=== PATIENT | male | born 1960 | race Caucasian/White ===

== ENCOUNTER → 2022-01-02 | Outpatient (CLI) | payer MEDICARE ==
[2022-01-02 10:52] LABS: INR 1.67; PROTHROMBIN TIME 20.1 SECONDS (12.7-14.5)
== END ==
LOC: M LAB 10:14
DX: Z79.01 Long term (current) use of anticoagulants (principal)

== ENCOUNTER → 2022-01-23 | Outpatient (CLI) | payer MEDICARE ==
[2022-01-23 16:23] LABS: INR 2.67; PROTHROMBIN TIME 28.8 SECONDS (12.7-14.5)
== END ==
LOC: M WUC 13:04
PROVIDERS: ATTEND Internal Medicine
DX: Z79.01 Long term (current) use of anticoagulants (principal); I48.20 Chronic atrial fibrillation, unspecified

== ENCOUNTER → 2022-02-20 | Outpatient (CLI) | payer MEDICARE ==
[2022-02-20 20:08] LABS: INR 1.86; PROTHROMBIN TIME 21.8 SECONDS (12.7-14.5)
== END ==
LOC: M WUC 15:01
PROVIDERS: ATTEND Internal Medicine
DX: Z79.01 Long term (current) use of anticoagulants (principal); I48.20 Chronic atrial fibrillation, unspecified

== ENCOUNTER → 2022-03-13 | Outpatient (REF) | payer MEDICARE ==
[2022-03-13 13:28] LABS: INR 1.93; PROTHROMBIN TIME 22.5 SECONDS (12.7-14.5)
== END ==
LOC: M WUC 12:16
PROVIDERS: ATTEND Internal Medicine
DX: Z79.01 Long term (current) use of anticoagulants (principal)

== ENCOUNTER → 2022-04-02 | Outpatient (REF) | payer MEDICARE ==
[2022-04-02 16:20] LABS: INR 2.71; PROTHROMBIN TIME 29.1 SECONDS (12.7-14.5)
== END ==
LOC: M LABWUC 15:50
PROVIDERS: ATTEND Internal Medicine
DX: Z79.01 Long term (current) use of anticoagulants (principal); I48.20 Chronic atrial fibrillation, unspecified

== ENCOUNTER → 2022-04-23 | Outpatient (REF) | payer MEDICARE ==
[2022-04-23 17:23] LABS: INR 2.16; PROTHROMBIN TIME 24.5 SECONDS (12.7-14.5)
== END ==
LOC: M LABWUC 16:34
PROVIDERS: ATTEND Internal Medicine
DX: Z79.01 Long term (current) use of anticoagulants (principal); I48.20 Chronic atrial fibrillation, unspecified

== ENCOUNTER → 2022-05-21 | Outpatient (REF) | payer MEDICARE ==
[2022-05-21 17:55] LABS: INR 3.22; PROTHROMBIN TIME 33.2 SECONDS (12.7-14.5)
== END ==
LOC: M LABWUC 17:08
PROVIDERS: ATTEND Internal Medicine
DX: Z79.01 Long term (current) use of anticoagulants (principal)

== ENCOUNTER → 2022-07-15 | Outpatient (CLI) | payer MEDICARE ==
[2022-07-15 18:28] LABS: INR 2.97; PROTHROMBIN TIME 31.4 SECONDS (12.5-14.5)
== END ==
LOC: M WUC 14:35
PROVIDERS: ATTEND Internal Medicine
DX: I48.20 Chronic atrial fibrillation, unspecified (principal); Z79.01 Long term (current) use of anticoagulants

== ENCOUNTER → 2022-08-14 | Outpatient (REF) | payer MEDICARE ==
[2022-08-14 17:10] LABS: INR 2.74; PROTHROMBIN TIME 29.4 SECONDS (12.5-14.5)
== END ==
LOC: M WUC 14:09
PROVIDERS: ATTEND Internal Medicine
DX: Z79.01 Long term (current) use of anticoagulants (principal); I48.20 Chronic atrial fibrillation, unspecified

== ENCOUNTER → 2022-09-02 | Outpatient (CLI) | payer MEDICARE | LOC: M WUC 13:31 | PROVIDERS: ATTEND Internal Medicine | DX: Z53.9 Procedure and treatment not carried out, unspecified reason (principal) ==

== ENCOUNTER → 2022-09-25 | Outpatient (REF) | payer MEDICARE ==
[2022-09-25 20:13] LABS: INR 4.16; PROTHROMBIN TIME 40.8 SECONDS (12.5-14.5)
== END ==
LOC: M LABWUC 19:11
PROVIDERS: ATTEND Internal Medicine
DX: Z79.01 Long term (current) use of anticoagulants (principal); I48.20 Chronic atrial fibrillation, unspecified

== ENCOUNTER → 2022-09-30 | Outpatient (CLI) | payer MEDICARE ==
[2022-09-30 13:56] LABS: INR 2.62; PROTHROMBIN TIME 28.4 SECONDS (12.5-14.5)
== END ==
LOC: M WUC 10:43
PROVIDERS: ATTEND Internal Medicine
DX: Z79.01 Long term (current) use of anticoagulants (principal)

== ENCOUNTER → 2022-11-15 | Outpatient (CLI) | payer MEDICARE ==
[2022-11-15 16:47] LABS: INR 2.07; PROTHROMBIN TIME 23.7 SECONDS (12.5-14.5)
== END ==
LOC: M WUC 13:44
PROVIDERS: ATTEND Internal Medicine
DX: Z79.01 Long term (current) use of anticoagulants (principal); I48.20 Chronic atrial fibrillation, unspecified

== ENCOUNTER → 2022-12-17 | Outpatient (CLI) | payer OTHER ==
[2022-12-17 13:21] LABS: INR 1.72; PROTHROMBIN TIME 20.5 SECONDS (12.5-14.5)
== END ==
LOC: M WUC 10:51
PROVIDERS: ATTEND Internal Medicine
DX: Z79.01 Long term (current) use of anticoagulants (principal); I48.20 Chronic atrial fibrillation, unspecified

== ENCOUNTER → 2023-01-06 | Outpatient (CLI) | payer OTHER ==
[2023-01-06 13:04] LABS: INR 1.74; PROTHROMBIN TIME 20.7 SECONDS (12.5-14.5)
== END ==
LOC: M WUC 10:57
PROVIDERS: ATTEND Internal Medicine
DX: I48.20 Chronic atrial fibrillation, unspecified (principal)

== ENCOUNTER → 2023-01-28 | Outpatient (CLI) | payer OTHER ==
[2023-01-28 16:27] LABS: PROTHROMBIN TIME > 150.0 SECONDS (12.5-14.5)
[2023-01-29 10:24] LABS: INR > 5.00
== END ==
LOC: M WUC 13:50
PROVIDERS: ATTEND Internal Medicine
DX: Z79.01 Long term (current) use of anticoagulants (principal)

== ENCOUNTER 2023-01-30 19:27 | Emergency (ER) | payer OTHER ==
[2023-01-30] MEDS ORDERED: AMIO200T49 PO (19:40)
[2023-01-30] MEDS ORDERED: SPIR-10 PO (19:42)
[2023-01-30] MEDS ORDERED: METO1TAB33 PO (19:42)
[2023-01-30] MEDS ORDERED: FURO40TA2 PO (19:43)
[2023-01-30] MEDS ORDERED: PANT40TA29 PO (19:43)
[2023-01-30] MEDS ORDERED: LISI5TAB11 PO (19:43)
[2023-01-30] MEDS ORDERED: ALBU6.7H6 INH (19:44)
[2023-01-30] MEDS ORDERED: SYMB80INH INH (19:44)
[2023-01-30] MEDS ORDERED: MAGN400T2 PO (19:44)
[2023-01-30] MEDS ORDERED: WARF4TAB51 PO (19:45)
[2023-01-30 20:29] LABS: BASO % 0.5 % (0.0-1.0); EOS # 0.3 10^3/uL (0.0-0.5); EOS % 3.4 % (0.0-3.0); HEMATOCRIT 26.2 % (42.0-52.0); LYMPH # 1.2 10^3/uL (1.5-5.0); MEAN CORPUSCULAR HEMOGLOBIN 29.5 pg (27.0-33.0); MEAN CORPUSCULAR HGB CONC 34.4 g/dl (32.0-36.5); MEAN CORPUSCULAR VOLUME 85.9 fl (80.0-96.0); MONO # 0.7 10^3/uL (0.0-0.8); MONO % 9.1 % (2.0-8.0); NEUTROPHILS # 5.1 10^3/uL (1.5-8.5); NEUTROPHILS % 69.5 % (36.0-66.0); PLATELET COUNT, AUTOMATED 111 10^3/uL (150-450); RED BLOOD COUNT 3.05 10^6/uL (4.30-6.10); WHITE BLOOD COUNT 7.3 10^3/uL (4.0-10.0)
[2023-01-30 21:04] LABS: RSV AMPLIFICATION NEGATIVE (NEGATIVE)
[2023-01-30 21:07] LABS: PROTHROMBIN TIME 89.9 SECONDS (12.5-14.5)
[2023-01-30 21:21] LABS: ALBUMIN 3.1 G/DL (3.2-5.2); ALKALINE PHOSPHATASE 159 U/L (46-116); ALT/SGPT 2955 U/L (7.0-40); AST/SGOT 1097 U/L (<34); BILIRUBIN,TOTAL 4.8 MG/DL (0.3-1.2); BLOOD UREA NITROGEN 28 MG/DL (9-23); CALCIUM LEVEL 8.7 MG/DL (8.3-10.6); CARBON DIOXIDE LEVEL 26 MMOL/L (20-31); CHLORIDE LEVEL 100 MMOL/L (98-107); CK-MB VALUE MASS 1.2 NG/ML (<3.6); CPK CREATINE PHOSPHOKINASE 451 U/L (46-171); CREATININE FOR GFR 1.17 MG/DL (0.70-1.30); GLOMERULAR FILTRATION RATE > 60.0 (>49); GLUCOSE, FASTING 137 MG/DL (74-106); MB/CK RELATIVE INDEX 0.26 (< OR =4); POTASSIUM SERUM 3.9 MMOL/L (3.5-5.1); SODIUM LEVEL 135 MMOL/L (136-145); TOTAL PROTEIN 5.5 G/DL (5.7-8.2)
[2023-01-30] MEDS ORDERED: NS 500 ML IV ONE (21:25)
[2023-01-30] MEDS ORDERED: MORPHINE 2 MG/ML 1ML VIAL IV ONE (21:30)
[2023-01-30 21:33] LABS: INR 11.42
[2023-01-30] MEDS ORDERED: ISOVUE-370 76% 100ML VIAL As Ordered ONE (21:45)
[2023-01-30] MEDS ORDERED: PHYTONADIONE INJection 10 MG in NS 50 ML IV ONE (23:20)
[2023-01-30] MEDS ORDERED: MORPHINE 4 MG/ML 1ML VIAL IV ONE (23:50)
[2023-01-31 00:11] VITALS: BP 111/65
[2023-01-31 01:07] LABS: ACETAMINOPHEN LEVEL 5.1 UG/ML (10.0-20.0); HEPATITIS B CORE ANTIBODY IGM NEGATIVE (NEGATIVE); HEPATITIS B SURFACE ANTIGEN NEGATIVE (NEGATIVE)
[2023-01-31 01:09] LABS: HEPATITIS C VIRUS ABY INDEX > 11.0 INDEX (<0.8)
== END 2023-01-31 01:29 | disposition short-term general hospital (02) ==
LOC: M ED 19:27
DX: R79.1 Abnormal coagulation profile (principal); K72.90 Hepatic failure, unspecified without coma; D64.9 Anemia, unspecified; H44.819 Hemophthalmos, unspecified eye; I10 Essential (primary) hypertension; I42.9 Cardiomyopathy, unspecified; Z79.01 Long term (current) use of anticoagulants; F17.200 Nicotine dependence, unspecified, uncomplicated; Z79.899 Other long term (current) drug therapy; Z79.51 Long term (current) use of inhaled steroids
CPT/HCPCS: 36415; 70450; 71045; 71275; 72125; 73502; 73552; 73564; 74177; 80048; 80076; 80143; 82550; 82553; 84484; 85025; 85610; 86705; 86709; 86803; 87340; 87522; 87631; 93041; 93971; 94760; 96365; 96375; 96376; 99285; J3430; Q9967

== ENCOUNTER → 2023-01-30 | Outpatient (CLI) | payer OTHER ==
[~2023-01-30] MED LIST: ALBU6.7H6 INH; AMIO200T49 PO; FURO40TA2 PO; LISI5TAB11 PO; MAGN400T2 PO; METO1TAB33 PO; PANT40TA29 PO; SPIR-10 PO; SYMB80INH INH; WARF4TAB51 PO
[2023-01-30 17:58] LABS: INR 12.17
[2023-01-30 18:19] LABS: PROTHROMBIN TIME 94.4 SECONDS (12.5-14.5)
== END ==
LOC: M WUC 14:01
PROVIDERS: ATTEND Internal Medicine
DX: Z79.01 Long term (current) use of anticoagulants (principal)

== ENCOUNTER → 2023-02-05 | Outpatient (CLI) | payer OTHER ==
[2023-02-05 14:58] LABS: INR 1.11; PROTHROMBIN TIME 14.5 SECONDS (12.5-14.5)
== END ==
LOC: M WUC 13:37
PROVIDERS: ATTEND Internal Medicine
DX: Z79.01 Long term (current) use of anticoagulants (principal); I48.20 Chronic atrial fibrillation, unspecified

== ENCOUNTER → 2023-02-07 | Outpatient (CLI) | payer OTHER ==
[2023-02-07 17:09] LABS: HEMOGLOBIN 9.5 g/dl (13.5-17.5); MEAN CORPUSCULAR HEMOGLOBIN 30.5 pg (27.0-33.0); MEAN CORPUSCULAR HGB CONC 31.7 g/dl (32.0-36.5); MEAN CORPUSCULAR VOLUME 96.5 fl (80.0-96.0); PLATELET COUNT, AUTOMATED 233 10^3/uL (150-450); RED BLOOD COUNT 3.11 10^6/uL (4.30-6.10); WHITE BLOOD COUNT 10.9 10^3/uL (4.0-10.0)
[2023-02-07 17:13] LABS: IRON (FE) 86 UG/DL (65-175)
[2023-02-07 17:14] LABS: ALBUMIN 3.2 G/DL (3.2-5.2); ALKALINE PHOSPHATASE 105 U/L (46-116); ALT/SGPT 477 U/L (7.0-40); AST/SGOT 54 U/L (<34); BLOOD UREA NITROGEN 18 MG/DL (9-23); CALCIUM LEVEL 8.2 MG/DL (8.3-10.6); CARBON DIOXIDE LEVEL 25 MMOL/L (20-31); CHLORIDE LEVEL 104 MMOL/L (98-107); CREATININE FOR GFR 0.94 MG/DL (0.70-1.30); GLOMERULAR FILTRATION RATE > 60.0 (>49); GLUCOSE, FASTING 75 MG/DL (74-106); MAGNESIUM LEVEL 1.6 MG/DL (1.8-2.4); POTASSIUM SERUM 4.2 MMOL/L (3.5-5.1); SODIUM LEVEL 136 MMOL/L (136-145); TOTAL PROTEIN 6.1 G/DL (5.7-8.2)
[2023-02-07 17:15] LABS: FERRITIN 171.2 NG/ML (10.5-307.3)
== END ==
LOC: M WUC 11:40
DX: F10.10 Alcohol abuse, uncomplicated (principal); D50.9 Iron deficiency anemia, unspecified

== ENCOUNTER → 2023-03-05 | Outpatient (CLI) | payer OTHER ==
[2023-03-05 17:41] LABS: INR 2.41; PROTHROMBIN TIME 26.6 SECONDS (12.5-14.5)
== END ==
LOC: M WUC 13:53
PROVIDERS: ATTEND Internal Medicine
DX: Z79.01 Long term (current) use of anticoagulants (principal); I48.20 Chronic atrial fibrillation, unspecified

== ENCOUNTER → 2023-04-18 | Outpatient (CLI) | payer OTHER ==
[2023-04-18 13:09] LABS: INR 0.93; PROTHROMBIN TIME 12.7 SECONDS (12.5-14.5)
== END ==
LOC: M WUC 09:23
PROVIDERS: ATTEND Internal Medicine
DX: Z79.01 Long term (current) use of anticoagulants (principal)

== ENCOUNTER → 2023-05-05 | Outpatient (CLI) | payer OTHER ==
[2023-05-05 17:34] LABS: INR 2.67; PROTHROMBIN TIME 27.8 SECONDS (12.5-14.5)
== END ==
LOC: M WUC 13:28
PROVIDERS: ATTEND Internal Medicine
DX: Z79.01 Long term (current) use of anticoagulants (principal); I48.20 Chronic atrial fibrillation, unspecified

== ENCOUNTER → 2023-05-29 | Outpatient (REF) | payer OTHER ==
[2023-05-29 17:53] LABS: INR 2.62; PROTHROMBIN TIME 27.4 SECONDS (12.5-14.5)
== END ==
LOC: M WUC 15:57
PROVIDERS: ATTEND Internal Medicine
DX: Z79.01 Long term (current) use of anticoagulants (principal); I48.20 Chronic atrial fibrillation, unspecified

== ENCOUNTER → 2023-06-10 | Outpatient (CLI) | payer OTHER ==
[2023-06-10 12:40] LABS: INR 2.56; PROTHROMBIN TIME 26.9 SECONDS (12.5-14.5)
== END ==
LOC: M WUC 09:59
PROVIDERS: ATTEND Internal Medicine
DX: I48.20 Chronic atrial fibrillation, unspecified (principal)

== ENCOUNTER → 2023-06-25 | Outpatient (REF) | payer OTHER ==
[2023-06-25 12:19] LABS: INR 2.57
== END ==
LOC: M WUC 11:27
PROVIDERS: ATTEND Internal Medicine
DX: I48.20 Chronic atrial fibrillation, unspecified (principal)

== ENCOUNTER → 2023-07-14 | Outpatient (REF) | payer OTHER ==
[2023-07-14 17:06] LABS: INR 1.87
== END ==
LOC: M WUC 16:11
PROVIDERS: ATTEND Internal Medicine
DX: I48.20 Chronic atrial fibrillation, unspecified (principal)

== ENCOUNTER → 2023-07-29 | Outpatient (REF) | payer OTHER ==
[2023-07-29 18:09] LABS: INR 3.33; PROTHROMBIN TIME 32.5 SECONDS (12.5-14.5)
== END ==
LOC: M LABWUC 16:29
PROVIDERS: ATTEND Internal Medicine
DX: I48.20 Chronic atrial fibrillation, unspecified (principal)

== ENCOUNTER → 2023-08-12 | Outpatient (REF) | payer OTHER ==
[2023-08-12 16:13] LABS: INR 2.98; PROTHROMBIN TIME 29.9 SECONDS (12.5-14.5)
== END ==
LOC: M WUC 15:25
PROVIDERS: ATTEND Internal Medicine
DX: I48.20 Chronic atrial fibrillation, unspecified (principal)

== ENCOUNTER → 2023-08-22 | Outpatient (REF) | payer OTHER ==
[2023-08-22 17:48] LABS: INR 2.26; PROTHROMBIN TIME 24.1 SECONDS (12.5-14.5)
== END ==
LOC: M WUC 16:09
PROVIDERS: ATTEND Internal Medicine
DX: I48.20 Chronic atrial fibrillation, unspecified (principal)

== ENCOUNTER → 2023-09-10 | Outpatient (REF) | payer OTHER ==
[2023-09-10 17:18] LABS: INR 3.31; PROTHROMBIN TIME 32.4 SECONDS (12.5-14.5)
== END ==
LOC: M LABWUC 16:10
PROVIDERS: ATTEND Internal Medicine
DX: I48.20 Chronic atrial fibrillation, unspecified (principal)

== ENCOUNTER → 2023-10-01 | Outpatient (REF) | payer OTHER ==
[2023-10-01 17:06] LABS: INR 2.47; PROTHROMBIN TIME 25.9 SECONDS (12.5-14.5)
== END ==
LOC: M LABWUC 16:01
PROVIDERS: ATTEND Internal Medicine
DX: I48.20 Chronic atrial fibrillation, unspecified (principal)

== ENCOUNTER → 2023-10-28 | Outpatient (REF) | payer OTHER ==
[2023-10-28 13:00] LABS: INR 2.71; PROTHROMBIN TIME 27.7 SECONDS (12.5-14.5)
== END ==
LOC: M LABWUC 12:11
PROVIDERS: ATTEND Internal Medicine
DX: I48.20 Chronic atrial fibrillation, unspecified (principal)

== ENCOUNTER → 2023-11-13 | Outpatient (REF) | payer OTHER ==
[2023-11-13 13:44] LABS: INR 1.69; PROTHROMBIN TIME 19.3 SECONDS (12.5-14.5)
== END ==
LOC: M LABWUC 12:07
PROVIDERS: ATTEND Internal Medicine
DX: I48.20 Chronic atrial fibrillation, unspecified (principal)

== ENCOUNTER → 2023-12-05 | Outpatient (REF) | payer OTHER ==
[2023-12-05 19:44] LABS: INR 1.82; PROTHROMBIN TIME 20.5 SECONDS (12.5-14.5)
== END ==
LOC: M LAB REF 19:25
PROVIDERS: ATTEND Internal Medicine
DX: I48.20 Chronic atrial fibrillation, unspecified (principal)

== ENCOUNTER → 2024-01-01 | Outpatient (REF) | payer OTHER ==
[2024-01-01 17:14] LABS: ALT/SGPT 21 U/L (7.0-40); AST/SGOT 29 U/L (<34); BLOOD UREA NITROGEN 17 MG/DL (9-23); CALCIUM LEVEL 8.7 MG/DL (8.3-10.6); CARBON DIOXIDE LEVEL 32 MMOL/L (20-31); CHLORIDE LEVEL 101 MMOL/L (98-107); CREATININE FOR GFR 1.02 MG/DL (0.70-1.30); GLOMERULAR FILTRATION RATE > 60.0 (>49); GLUCOSE, FASTING 107 MG/DL (74-106); POTASSIUM SERUM 3.6 MMOL/L (3.5-5.1); SODIUM LEVEL 140 MMOL/L (136-145)
[2024-01-01 17:16] LABS: THYROID STIMULATING HORMONE 2.424 uIU/ML (0.55-4.78)
== END ==
LOC: M LABWUC 16:13
PROVIDERS: ATTEND Nurse Practitioner Family
DX: I48.20 Chronic atrial fibrillation, unspecified (principal); I50.22 Chronic systolic (congestive) heart failure

== ENCOUNTER → 2024-01-01 | Outpatient (REF) | payer OTHER ==
[2024-01-01 17:17] LABS: INR 3.49; PROTHROMBIN TIME 33.7 SECONDS (12.5-14.5)
== END ==
LOC: M LABWUC 16:12
PROVIDERS: ATTEND Internal Medicine
DX: I48.20 Chronic atrial fibrillation, unspecified (principal)

== ENCOUNTER 2024-01-09 21:19 | Emergency (ER) | payer OTHER ==
[~2024-01-09] VITALS: Ht 195.6 cm; Wt 113.6 kg
[2024-01-09 23:03] LABS: BASO # 0.1 10^3/uL (0.0-0.2); BASO % 0.6 % (0.0-1.0); EOS # 0.1 10^3/uL (0.0-0.5); HEMATOCRIT 40.4 % (42.0-52.0); HEMOGLOBIN 12.9 g/dl (13.5-17.5); LYMPH # 1.1 10^3/uL (1.5-5.0); LYMPH % 13.5 % (24.0-44.0); MEAN CORPUSCULAR HGB CONC 31.9 g/dl (32.0-36.5); MEAN CORPUSCULAR VOLUME 84.7 fl (80.0-96.0); MONO # 0.8 10^3/uL (0.0-0.8); NEUTROPHILS # 6.2 10^3/uL (1.5-8.5); NEUTROPHILS % 74.4 % (36.0-66.0); PLATELET COUNT, AUTOMATED 166 10^3/uL (150-450); RED BLOOD COUNT 4.77 10^6/uL (4.30-6.10); WHITE BLOOD COUNT 8.3 10^3/uL (4.0-10.0)
[2024-01-09 23:15] LABS: INR 4.01; PROTHROMBIN TIME 37.5 SECONDS (12.5-14.5)
[2024-01-09] MEDS: ONDANSETRON 4MG ORAL DISINTEGRATING TAB PO ONE (23:21)
[2024-01-09 23:31] LABS: BLOOD UREA NITROGEN 19 MG/DL (9-23); CALCIUM LEVEL 8.9 MG/DL (8.3-10.6); CARBON DIOXIDE LEVEL 32 MMOL/L (20-31); CHLORIDE LEVEL 96 MMOL/L (98-107); GLOMERULAR FILTRATION RATE > 60.0 (>49); GLUCOSE, FASTING 102 MG/DL (74-106); POTASSIUM SERUM 3.9 MMOL/L (3.5-5.1); SODIUM LEVEL 136 MMOL/L (136-145)
[2024-01-10] MEDS ORDERED: VENTAER INH (00:53)
[2024-01-10] MEDS ORDERED: TOPR100T PO (00:53)
[2024-01-10] MEDS ORDERED: WARF-18 PO ×2 (00:53)
[2024-01-10] MEDS ORDERED: THERTAB52 PO (00:53)
[2024-01-10] MEDS ORDERED: ACET325C5 PO (00:53)
[2024-01-10] MEDS ORDERED: HOME MED LIST COMPLETE! XX SCH (00:55)
[2024-01-10] MEDS: PHYTONADIONE 5 MG TAB PO ONE (01:29)
[2024-01-10] MEDS: OXAZEPAM 15MG CAP PO ONE (02:15)
[2024-01-10] MEDS: TRANEXAMIC ACID INJection 1,000 MG in NS 100 ML IV ONE (02:24)
[2024-01-10 02:36] LABS: ALBUMIN 3.3 G/DL (3.2-5.2); BILIRUBIN,DIRECT 0.2 MG/DL (<0.4); BILIRUBIN,TOTAL 0.9 MG/DL (0.3-1.2); TOTAL PROTEIN 6.3 G/DL (5.7-8.2)
[2024-01-10 03:26] VITALS: BP 148/68; TEMP 98; O2SAT 98
== END 2024-01-10 04:41 | disposition home or self-care (01) ==
LOC: M ED 21:19
DX: R79.1 Abnormal coagulation profile (principal); R58 Hemorrhage, not elsewhere classified; I48.91 Unspecified atrial fibrillation; I10 Essential (primary) hypertension; Z79.1 Long term (current) use of non-steroidal anti-inflammatories (NSAID); Z79.51 Long term (current) use of inhaled steroids; Z79.810 Long term (current) use of selective estrogen receptor modulators (SERMs); Z79.899 Other long term (current) drug therapy

== ENCOUNTER → 2024-01-12 | Outpatient (CLI) | payer OTHER ==
[~2024-01-12] MED LIST changes: +ACET325C5 PO; +THERTAB52 PO; +TOPR100T PO; +VENTAER INH; +WARF-18 PO
[2024-01-12 10:44] LABS: INR 1.58; PARTIAL THROMBOPLASTIN TIME 40.1 SECONDS (24.8-34.2); PROTHROMBIN TIME 18.3 SECONDS (12.5-14.5)
== END ==
LOC: M WUC 08:59
PROVIDERS: ATTEND Emergency Medicine
DX: Z79.01 Long term (current) use of anticoagulants (principal)

== ENCOUNTER → 2024-01-29 | Outpatient (REF) | payer OTHER ==
[2024-01-29 16:53] LABS: INR 3.4; PROTHROMBIN TIME 33.1 SECONDS (12.5-14.5)
== END ==
LOC: M LABDRAWP 16:07
PROVIDERS: ATTEND Internal Medicine
DX: I48.20 Chronic atrial fibrillation, unspecified (principal)

== ENCOUNTER 2024-02-08 20:45 | Emergency (ER) | payer OTHER ==
[~2024-02-08] VITALS: Ht 195.6 cm; Wt 118.0 kg
[2024-02-08 21:48] LABS: HEMATOCRIT 38.1 % (42.0-52.0); HEMOGLOBIN 12.2 g/dl (13.5-17.5); MEAN CORPUSCULAR VOLUME 87.6 fl (80.0-96.0); PLATELET COUNT, AUTOMATED 151 10^3/uL (150-450); RED BLOOD COUNT 4.35 10^6/uL (4.30-6.10); WHITE BLOOD COUNT 6.3 10^3/uL (4.0-10.0)
[2024-02-08 22:00] LABS: INR 3.34; PROTHROMBIN TIME 32.6 SECONDS (12.5-14.5)
[2024-02-08 22:20] LABS: ATYPICAL LYMPH 2 % (0-5); BASOPHILS 2 % (0-1); EOSINOPHILS 4 % (0-3); LYMPHOCYTES 38 % (16-44); MONOCYTES 9 % (0-5); NEUTROPHILS 45 % (28-66); PLATELET ESTIMATE NORMAL (NORMAL)
[2024-02-08 22:25] LABS: CK-MB VALUE MASS < 1.0 NG/ML (<3.6); LIPASE 60 U/L (12-53)
[2024-02-08 22:27] LABS: ALBUMIN 3.6 G/DL (3.2-5.2); ALKALINE PHOSPHATASE 50 U/L (46-116); ALT/SGPT 21 U/L (7.0-40); AST/SGOT 38 U/L (<34); BILIRUBIN,DIRECT < 0.1 MG/DL (<0.4); BILIRUBIN,TOTAL 0.2 MG/DL (0.3-1.2); BLOOD UREA NITROGEN 16 MG/DL (9-23); CALCIUM LEVEL 8.4 MG/DL (8.3-10.6); CARBON DIOXIDE LEVEL 27 MMOL/L (20-31); CHLORIDE LEVEL 104 MMOL/L (98-107); CREATININE FOR GFR 0.98 MG/DL (0.70-1.30); GLOMERULAR FILTRATION RATE > 60.0 (>49); GLUCOSE, FASTING 100 MG/DL (74-106); POTASSIUM SERUM 4.5 MMOL/L (3.5-5.1); SODIUM LEVEL 139 MMOL/L (136-145); TOTAL PROTEIN 6.7 G/DL (5.7-8.2)
[2024-02-08 22:33] LABS: CPK CREATINE PHOSPHOKINASE 75 U/L (46-171); MB/CK RELATIVE INDEX 1.33 (< OR =4)
[2024-02-08 23:40] VITALS: TEMP 97
[2024-02-09 00:18] LABS: CK-MB VALUE MASS < 1.0 NG/ML (<3.6)
[2024-02-09 00:20] LABS: CPK CREATINE PHOSPHOKINASE 76 U/L (46-171); MB/CK RELATIVE INDEX 1.31 (< OR =4)
[2024-02-09] MEDS: methylPREDNISolone 125MG 2ML VIAL IV ONE (00:39)
[2024-02-09] MEDS: IPRATROPIUM 0.5MG/ALBUTEROL 2.5MG INH SOL UD 3ML (DUONEB) NEB ONE (00:44)
[2024-02-09 02:00] VITALS: BP 123/89; O2SAT 93
== END 2024-02-09 02:22 | disposition home or self-care (01) ==
LOC: M ED 20:45
DX: R07.9 Chest pain, unspecified (principal); J06.9 Acute upper respiratory infection, unspecified; R06.00 Dyspnea, unspecified; K42.9 Umbilical hernia without obstruction or gangrene; R94.31 Abnormal electrocardiogram [ECG] [EKG]; I44.7 Left bundle-branch block, unspecified; I48.91 Unspecified atrial fibrillation; I50.22 Chronic systolic (congestive) heart failure; K21.9 Gastro-esophageal reflux disease without esophagitis; F17.210 Nicotine dependence, cigarettes, uncomplicated; F10.10 Alcohol abuse, uncomplicated; Z79.1 Long term (current) use of non-steroidal anti-inflammatories (NSAID); Z79.51 Long term (current) use of inhaled steroids; Z79.810 Long term (current) use of selective estrogen receptor modulators (SERMs); Z79.899 Other long term (current) drug therapy
CPT/HCPCS: 71045; 80053; 82248; 82550; 82553; 83605; 83690; 83880; 84484; 85025; 85610; 87486; 87581; 87633; 87798; 93005; 93041; 94640; 94760; 96374; 99285; J2919

== ENCOUNTER → 2024-02-23 | Outpatient (REF) | payer OTHER ==
[2024-02-23 21:41] LABS: INR 2.62
== END ==
LOC: M LAB REF 21:07
PROVIDERS: ATTEND Internal Medicine
DX: I48.20 Chronic atrial fibrillation, unspecified (principal)

== ENCOUNTER → 2024-03-23 | Outpatient (REF) | payer OTHER ==
[2024-03-23 17:37] LABS: INR 3.22; PROTHROMBIN TIME 31.7 SECONDS (12.5-14.5)
== END ==
LOC: M LABWUC 16:05
PROVIDERS: ATTEND Internal Medicine
DX: I48.20 Chronic atrial fibrillation, unspecified (principal)

== ENCOUNTER → 2024-04-07 | Outpatient (REF) | payer OTHER ==
[2024-04-07 16:42] LABS: INR 3.19; PROTHROMBIN TIME 31.5 SECONDS (12.5-14.5)
== END ==
LOC: M LABWUC 16:12
PROVIDERS: ATTEND Internal Medicine
DX: I48.20 Chronic atrial fibrillation, unspecified (principal)

== ENCOUNTER → 2024-04-20 | Outpatient (CLI) | payer OTHER ==
[2024-04-20 12:56] LABS: INR 2.22; PROTHROMBIN TIME 23.9 SECONDS (12.5-14.5)
== END ==
LOC: M WUC 10:24
PROVIDERS: ATTEND Internal Medicine
DX: I48.20 Chronic atrial fibrillation, unspecified (principal)

== ENCOUNTER → 2024-05-18 | Outpatient (REF) | payer OTHER ==
[2024-05-18 16:34] LABS: INR 1.65; PROTHROMBIN TIME 18.9 SECONDS (12.5-14.5)
== END ==
LOC: M LABWUC 16:10
PROVIDERS: ATTEND Internal Medicine
DX: I48.20 Chronic atrial fibrillation, unspecified (principal)

== ENCOUNTER → 2024-06-21 | Outpatient (REF) | payer OTHER ==
[2024-06-21 17:20] LABS: INR 1.49; PROTHROMBIN TIME 17.5 SECONDS (12.5-14.5)
== END ==
LOC: M LABWUC 16:15
PROVIDERS: ATTEND Internal Medicine
DX: I48.20 Chronic atrial fibrillation, unspecified (principal)

== ENCOUNTER → 2024-07-09 | Outpatient (REF) | payer OTHER ==
[2024-07-09 16:40] LABS: INR 2.82; PROTHROMBIN TIME 28.6 SECONDS (12.5-14.5)
== END ==
LOC: M LABWUC 16:09
PROVIDERS: ATTEND Internal Medicine
DX: I48.20 Chronic atrial fibrillation, unspecified (principal)

== ENCOUNTER → 2024-07-30 | Outpatient (REF) | payer OTHER ==
[2024-07-30 16:25] LABS: INR 3.02; PROTHROMBIN TIME 31.2 SECONDS (12.5-14.5)
== END ==
LOC: M LABDRWAD 16:06
PROVIDERS: ATTEND Internal Medicine
DX: I48.20 Chronic atrial fibrillation, unspecified (principal)

== ENCOUNTER → 2024-08-17 | Outpatient (REF) | payer OTHER ==
[2024-08-17 16:39] LABS: INR 2.11; PROTHROMBIN TIME 23.7 SECONDS (12.5-14.5)
== END ==
LOC: M LAB REF 16:10 → M LABWUC 16:10
PROVIDERS: ATTEND Internal Medicine
DX: I48.20 Chronic atrial fibrillation, unspecified (principal)

== ENCOUNTER → 2024-09-16 | Outpatient (CLI) | payer OTHER ==
[2024-09-16 16:11] LABS: INR 1.99; PROTHROMBIN TIME 22.7 SECONDS (12.5-14.5)
== END ==
LOC: M WUC 11:26
PROVIDERS: ATTEND Internal Medicine
DX: Z79.01 Long term (current) use of anticoagulants (principal)

== ENCOUNTER → 2024-10-16 | Outpatient (CLI) | payer OTHER | LOC: M SLEEP 20:00 | PROVIDERS: ATTEND Internal Medicine Critical Care Medicine | DX: G47.33 Obstructive sleep apnea (adult) (pediatric) (principal) ==

== ENCOUNTER → 2024-10-20 | Outpatient (REF) | payer OTHER ==
[2024-10-20 17:05] LABS: INR 1.88; PROTHROMBIN TIME 21.8 SECONDS (12.5-14.5)
== END ==
LOC: M LABWUC 16:15
PROVIDERS: ATTEND Internal Medicine
DX: Z79.01 Long term (current) use of anticoagulants (principal)

== ENCOUNTER → 2024-10-29 | Outpatient (REF) | payer MEDICARE ==
[2024-10-29 17:19] LABS: INR 1.96; PROTHROMBIN TIME 22.5 SECONDS (12.5-14.5)
== END ==
LOC: M LABWUC 16:05
PROVIDERS: ATTEND Internal Medicine
DX: Z79.01 Long term (current) use of anticoagulants (principal)

== ENCOUNTER → 2024-11-17 | Outpatient (REF) | payer MEDICARE ==
[2024-11-17 13:01] LABS: INR 3.54; PROTHROMBIN TIME 35.1 SECONDS (12.5-14.5)
[2024-11-17 13:18] LABS: ALBUMIN 3.9 G/DL (3.2-5.2); ALKALINE PHOSPHATASE 60 U/L (40-129); ALT/SGPT 21 U/L (7.0-40); AST/SGOT 29 U/L (<34); BILIRUBIN,TOTAL 0.7 MG/DL (0.3-1.2); BLOOD UREA NITROGEN 14 MG/DL (9-23); CALCIUM LEVEL 9.3 MG/DL (8.3-10.6); CARBON DIOXIDE LEVEL 28 MMOL/L (20-31); CHLORIDE LEVEL 97 MMOL/L (98-107); CHOLESTEROL LEVEL 232 MG/DL (<200); CHOLESTEROL RISK RATIO 4.02 (<5); CREATININE FOR GFR 1.12 MG/DL (0.70-1.30); GLOMERULAR FILTRATION RATE > 60.0 (>49); GLUCOSE, FASTING 141 MG/DL (74-106); HDL CHOLESTEROL 57.6 MG/DL (>40); LDL CHOLESTEROL 137.2 MG/DL (<100); MAGNESIUM LEVEL 1.6 MG/DL (1.8-2.4); NON-HDL-C 174.4 MG/DL; POTASSIUM SERUM 3.9 MMOL/L (3.5-5.1); SODIUM LEVEL 137 MMOL/L (136-145); TOTAL PROTEIN 7.4 G/DL (5.7-8.2); TRIGLYCERIDES LEVEL 186 MG/DL (<150)
[2024-11-17 13:22] LABS: THYROID STIMULATING HORMONE 3.958 uIU/ML (0.55-4.78)
[2024-11-17 13:32] LABS: HEMOGLOBIN A1c 5.4 % (4.0-6.0)
== END ==
LOC: M LABWUC 12:30
PROVIDERS: ATTEND Internal Medicine
DX: I50.22 Chronic systolic (congestive) heart failure (principal); N18.2 Chronic kidney disease, stage 2 (mild); I42.0 Dilated cardiomyopathy; I48.20 Chronic atrial fibrillation, unspecified; I47.20 Ventricular tachycardia, unspecified; Z51.81 Encounter for therapeutic drug level monitoring; Z79.899 Other long term (current) drug therapy; E26.1 Secondary hyperaldosteronism; F10.20 Alcohol dependence, uncomplicated; Z79.01 Long term (current) use of anticoagulants

== ENCOUNTER → 2024-11-23 | Outpatient (CLI) | payer MEDICARE ==
[2024-11-23 17:34] LABS: BASO # 0.1 10^3/uL (0.0-0.2); BASO % 1.2 % (0.0-1.0); EOS # 0.2 10^3/uL (0.0-0.5); EOS % 2.3 % (0.0-3.0); HEMATOCRIT 40.7 % (42.0-52.0); HEMOGLOBIN 12.7 g/dl (13.5-17.5); LYMPH # 1.9 10^3/uL (1.5-5.0); LYMPH % 22.5 % (24.0-44.0); MEAN CORPUSCULAR HEMOGLOBIN 27.8 pg (27.0-33.0); MEAN CORPUSCULAR HGB CONC 31.2 g/dl (32.0-36.5); MEAN CORPUSCULAR VOLUME 89.1 fl (80.0-96.0); MONO # 0.8 10^3/uL (0.0-0.8); MONO % 9.1 % (2.0-8.0); NEUTROPHILS # 5.5 10^3/uL (1.5-8.5); NEUTROPHILS % 64.5 % (36.0-66.0); PLATELET COUNT, AUTOMATED 266 10^3/uL (150-450); RED BLOOD COUNT 4.57 10^6/uL (4.30-6.10); WHITE BLOOD COUNT 8.6 10^3/uL (4.0-10.0)
[2024-11-23 17:48] LABS: INR 3.85; PROTHROMBIN TIME 37.5 SECONDS (12.5-14.5)
[2024-11-23 17:50] LABS: ALBUMIN 3.8 G/DL (3.2-5.2); BLOOD UREA NITROGEN 22 MG/DL (9-23); CARBON DIOXIDE LEVEL 34 MMOL/L (20-31); CHLORIDE LEVEL 100 MMOL/L (98-107); GLOMERULAR FILTRATION RATE > 60.0 (>49); GLUCOSE, FASTING 96 MG/DL (74-106); MAGNESIUM LEVEL 1.7 MG/DL (1.8-2.4); POTASSIUM SERUM 4.2 MMOL/L (3.5-5.1); SODIUM LEVEL 139 MMOL/L (136-145)
[2024-11-23 17:53] LABS: THYROID STIMULATING HORMONE 1.421 uIU/ML (0.55-4.78)
== END ==
LOC: M WUC 11:25
PROVIDERS: ATTEND Internal Medicine Cardiovascular Disease
DX: I48.0 Paroxysmal atrial fibrillation (principal); K21.9 Gastro-esophageal reflux disease without esophagitis; I50.22 Chronic systolic (congestive) heart failure; I47.20 Ventricular tachycardia, unspecified

== ENCOUNTER → 2024-11-29 | Outpatient (REF) | payer MEDICARE | LOC: M LAB REF 03:14 | PROVIDERS: ATTEND Internal Medicine Cardiovascular Disease | DX: I48.0 Paroxysmal atrial fibrillation (principal) ==

== ENCOUNTER → 2024-12-20 | Outpatient (REF) | payer MEDICARE ==
[2024-12-20 17:35] LABS: INR 2.27; PROTHROMBIN TIME 25.1 SECONDS (12.5-14.5)
== END ==
LOC: M LABWUC 17:01
PROVIDERS: ATTEND Internal Medicine Cardiovascular Disease
DX: I48.0 Paroxysmal atrial fibrillation (principal)

== ENCOUNTER → 2024-12-27 | Outpatient (CLI) | payer MEDICARE | LOC: M PLAIMG 12:40 | PROVIDERS: ATTEND Internal Medicine Cardiovascular Disease | DX: R06.02 Shortness of breath (principal); J44.9 Chronic obstructive pulmonary disease, unspecified; F17.218 Nicotine dependence, cigarettes, with other nicotine-induced disorders ==

== ENCOUNTER → 2025-01-04 | Outpatient (REF) | payer MEDICARE, OTHER ==
[2025-01-04 17:30] LABS: INR 2.01; PROTHROMBIN TIME 22.9 SECONDS (12.5-14.5)
== END ==
LOC: M LAB REF 17:12 → M LABWUC 17:12
PROVIDERS: ATTEND Internal Medicine Cardiovascular Disease
DX: I48.0 Paroxysmal atrial fibrillation (principal)

== ENCOUNTER → 2025-01-13 | Outpatient (CLI) | payer MEDICARE | LOC: M SLEEP 20:00 | PROVIDERS: ATTEND Internal Medicine Critical Care Medicine | DX: G47.33 Obstructive sleep apnea (adult) (pediatric) (principal) ==

== ENCOUNTER → 2025-01-14 | Outpatient (REF) | payer MEDICARE ==
[2025-01-14 18:23] LABS: CALCIUM LEVEL 9.2 MG/DL (8.3-10.6); CREATININE FOR GFR 1.03 MG/DL (0.70-1.30); GLOMERULAR FILTRATION RATE 82.1 (>49); POTASSIUM SERUM 4.1 MMOL/L (3.5-5.1)
[2025-01-14 18:41] LABS: BASO # 0.1 10^3/uL (0.0-0.2); BASO % 0.9 % (0.0-1.0); EOS # 0.1 10^3/uL (0.0-0.5); HEMATOCRIT 41.3 % (42.0-52.0); HEMOGLOBIN 12.8 g/dl (13.5-17.5); LYMPH # 1.1 10^3/uL (1.5-5.0); LYMPH % 16.5 % (24.0-44.0); MEAN CORPUSCULAR HEMOGLOBIN 27.8 pg (27.0-33.0); MEAN CORPUSCULAR VOLUME 89.6 fl (80.0-96.0); MONO # 0.9 10^3/uL (0.0-0.8); MONO % 13.3 % (2.0-8.0); NEUTROPHILS # 4.7 10^3/uL (1.5-8.5); PLATELET COUNT, AUTOMATED 177 10^3/uL (150-450); RED BLOOD COUNT 4.61 10^6/uL (4.30-6.10); WHITE BLOOD COUNT 6.9 10^3/uL (4.0-10.0)
== END ==
LOC: M LABWUC 16:45 → M LAB REF 16:45
PROVIDERS: ATTEND Physician Assistant
DX: I50.22 Chronic systolic (congestive) heart failure (principal)

== ENCOUNTER → 2025-02-09 | Outpatient (REF) | payer MEDICARE ==
[2025-02-09 17:08] LABS: INR 2.17; PROTHROMBIN TIME 24.2 SECONDS (12.5-14.5)
== END ==
LOC: M LABWUC 16:51
PROVIDERS: ATTEND Physician Assistant
DX: I48.0 Paroxysmal atrial fibrillation (principal)

== ENCOUNTER → 2025-03-28 | Outpatient (REF) | payer MEDICARE ==
[~2025-03-28] MED LIST changes: -AMIO200T49 PO; +AMIO200T54 PO; +BUDE10.7 IH; +DIGO0.253 PO; +FAMO40TA3 PO; +LOSA50TA28 PO
[2025-03-28 17:52] LABS: INR 3.05
== END ==
LOC: M LABWUC 17:05
PROVIDERS: ATTEND Physician Assistant
DX: I48.91 Unspecified atrial fibrillation (principal); Z79.01 Long term (current) use of anticoagulants

== ENCOUNTER → 2025-04-18 | Outpatient (CLI) | payer MEDICARE ==
[2025-04-18 12:05] LABS: INR 2.69
== END ==
LOC: M WUC 09:57
PROVIDERS: ATTEND Physician Assistant
DX: Z79.01 Long term (current) use of anticoagulants (principal)

== ENCOUNTER → 2025-05-17 | Outpatient (REF) | payer MEDICARE ==
[2025-05-17 17:38] LABS: INR 2.31
== END ==
LOC: M LABWUC 17:15 → M LAB REF 17:15
PROVIDERS: ATTEND Physician Assistant
DX: I48.91 Unspecified atrial fibrillation (principal); Z79.01 Long term (current) use of anticoagulants

== ENCOUNTER → 2025-06-22 | Outpatient (CLI) | payer MEDICARE ==
[2025-06-22 17:20] LABS: INR 2.33
== END ==
LOC: M WUC 14:38
PROVIDERS: ATTEND Physician Assistant
DX: I48.91 Unspecified atrial fibrillation (principal); Z79.01 Long term (current) use of anticoagulants

== ENCOUNTER → 2025-07-21 | Outpatient (REF) | payer MEDICARE ==
[2025-07-21 17:20] LABS: INR 1.34
== END ==
LOC: M LABWUC 16:56
PROVIDERS: ATTEND Physician Assistant
DX: I48.91 Unspecified atrial fibrillation (principal); Z79.01 Long term (current) use of anticoagulants

== ENCOUNTER → 2025-07-28 | Outpatient (REF) | payer MEDICARE ==
[2025-07-28 17:40] LABS: INR 2.43
== END ==
LOC: M LABWUC 17:08
PROVIDERS: ATTEND Physician Assistant
DX: I48.91 Unspecified atrial fibrillation (principal); Z79.01 Long term (current) use of anticoagulants

== ENCOUNTER → 2025-08-15 | Outpatient (REF) | payer MEDICARE ==
[2025-08-15 17:36] LABS: INR 2.16
== END ==
LOC: M LABWUC 16:59
PROVIDERS: ATTEND Physician Assistant
DX: I48.0 Paroxysmal atrial fibrillation (principal); Z79.01 Long term (current) use of anticoagulants

== ENCOUNTER → 2025-09-13 | Outpatient (CLI) | payer MEDICARE ==
[2025-09-13 17:31] LABS: INR 2.49
== END ==
LOC: M WUC 14:14
PROVIDERS: ATTEND Nurse Practitioner Family
DX: I48.0 Paroxysmal atrial fibrillation (principal)